=== PATIENT | female | born 1995 | race Two or more races ===

== ENCOUNTER 2023-09-14 07:12 | Emergency (ER) | payer BC, MEDICAID ==
[~2023-09-14] VITALS: Ht 167.6 cm; Wt 70.0 kg
[2023-09-14 07:24] VITALS: O2SAT 99
[2023-09-14 10:00] LABS: BASOPHILS % 0.3 % (0.0-2.0); HEMATOCRIT. 36.2 % (36.0-48.0); HEMOGLOBIN. 11.9 g/dL (12.0-16.0); MEAN CORPUSCULAR HEMOGLOBIN 29.6 pg (28.0-32.0); MEAN CORPUSCULAR HGB CONC 32.8 g/dL (31.0-37.0); MEAN CORPUSCULAR VOLUME 90.5 fL (81.0-99.0); MONOCYTES % 7.3 % (2.0-8.0); NEUTROPHILS % 84.4 % (40.0-76.0); PLATELET 312 x1000/uL (130-400); RED CELL DISTRIBUTION WIDTH 14.2 % (11.6-14.6); WHITE BLOOD COUNT 17.4 x1000/uL (4.5-11.0)
[2023-09-14 10:10] LABS: CARBON DIOXIDE 25 mEq/L (21-32); CHLORIDE 104 mEq/L (98-107); POTASSIUM 3.5 mEq/L (3.5-5.1); SODIUM 135 mEq/L (136-145)
[2023-09-14 10:11] LABS: CALCIUM 9.1 mg/dL (8.7-10.4)
[2023-09-14 10:16] LABS: CREATININE 0.7 mg/dL (0.6-1.0); GLUCOSE 97 mg/dL (70-105); UREA NITROGEN BLOOD 8 mg/dL (9-23)
[2023-09-14 10:22] LABS: HCG SCREEN NEGATIVE
[2023-09-14] MEDS ORDERED: CLINDAMYCIN 600 MG in DEXTROSE 5% WATER 50 ML IV ONE (11:30)
[2023-09-14] MEDS: CLINDAMYCIN 600MG PREMIX 50 ML IV NR (13:16)
[2023-09-14] MEDS: LIDOCAINE HCL 1% 20ML VIAL INFIL ONE (14:02)
[2023-09-14] MEDS: KETOROLAC 15MG/ML VIAL IV ONE (14:59)
[2023-09-14] MEDS ORDERED: IOHEXOL-300 100 ML BOTTLE ONE (15:09)
[2023-09-14] MEDS ORDERED: CLIN-194 MT (15:14)
[2023-09-14] MEDS ORDERED: IBUP-2028 MT (15:14)
[2023-09-14 15:16] VITALS: BP 118/70; PULSE 94; RESP 20; TEMP 36.78072; O2SAT 99
== END 2023-09-14 14:05 | disposition home or self-care (01) ==
LOC: ER 07:12
DX: K61.0 Anal abscess (principal)
CPT/HCPCS: 80048; 84703; 85025; 36415; 74177; 46050; 96365; 96366; 96375; 99285; Q9967; J1885; J3490 ×2; Z7610 ×3; J7060

== ENCOUNTER 2023-09-16 16:29 | Emergency (ER) | payer MEDICAID ==
[~2023-09-16] VITALS: Ht 167.6 cm; Wt 75.0 kg
[~2023-09-16 16:29] MED LIST: CLIN-194 MT; IBUP-2028 MT
[2023-09-16 16:34] VITALS: O2SAT 98
[2023-09-16 19:05] VITALS: BP 128/91; PULSE 85; RESP 18; TEMP 97.9
== END 2023-09-16 19:05 | disposition home or self-care (01) ==
LOC: ER 16:39
DX: T81.41XA Infection following a procedure, superficial incisional surgical site, initial encounter (principal); Z98.890 Other specified postprocedural states; X58.XXXA Exposure to other specified factors, initial encounter; Y93.89 Activity, other specified; Y92.89 Other specified places as the place of occurrence of the external cause; Y99.8 Other external cause status
CPT/HCPCS: 99281

== ENCOUNTER 2024-04-24 11:28 | Emergency (ER) | payer MEDICAID ==
[~2024-04-24] VITALS: Ht 160 cm; Wt 77.1 kg
[2024-04-24 11:37] VITALS: O2SAT 100
[2024-04-24 13:49] VITALS: BP 113/55; PULSE 68; RESP 18; TEMP 36.8; O2SAT 100
== END 2024-04-24 13:50 | disposition home or self-care (01) ==
LOC: ER 11:28
DX: S00.83XA Contusion of other part of head, initial encounter (principal); W22.09XA Striking against other stationary object, initial encounter; Y93.89 Activity, other specified; Y92.89 Other specified places as the place of occurrence of the external cause; Y99.8 Other external cause status
CPT/HCPCS: 99282